=== PATIENT | female | born 1960 | race Caucasian/White ===

== ENCOUNTER 2023-06-01 12:43 | Inpatient (IN) | payer BC ==
[~2023-06-01] VITALS: Ht 165.1 cm; Wt 65.9 kg
[2023-06-01] MEDS ORDERED: DEXTROSE 10% 250 ML IV ONE (13:00)
[2023-06-01 13:38] LABS: Basophils # (auto) 0.1 10 ^3/uL (0-0.2); Basophils % (auto) 0.9 % (0.0-2.0); Eosinophils # (auto) 0.5 10 ^3/uL (0-0.8); Eosinophils % (auto) 5.9 % (0.0-7.0); Hematocrit 38.6 % (36.0-46.0); Lymphocytes # (auto) 1.6 10 ^3/uL (0.4-5.4); Lymphocytes % (auto) 18.1 % (10.0-50.0); Mean Corpuscular Hemoglobin 29.7 pg (28.0-32.0); Mean Corpuscular Hgb Conc. 33.8 g/dL (32.0-36.0); Monocytes # (auto) 0.6 10 ^3/uL (0-1.3); Monocytes % (auto) 7.2 % (0.0-12.0); Neutrophils # (auto) 6.1 10 ^3/uL (1.6-8.6); Neutrophils % (auto) 67.9 % (37.0-80.0); Red Blood Cells 4.39 10^6/uL (4.0-5.20); Red Cell Distribution Width 13.2 % (11.8-14.3)
[2023-06-01 13:56] LABS: Partial Thromboplastin Time 26.4 SEC (24.5-34.5); Prothrombin Time 10.5 sec (9.3-11.8)
[2023-06-01 14:02] LABS: Alanine Aminotransferase 14 U/L (7-40); Albumin 4.4 g/dL (3.2-4.8); Alkaline Phosphatase 114 U/L (46-116); Anion Gap 14 (5-15); Aspartate Aminotransferase 16 U/L (13-40); Blood Urea Nitrogen 22 mg/dL (9-23); Calcium 10.2 mg/dL (8.7-10.4); Carbon Dioxide 18 mmol/L (20-30); Chloride 107 mmol/L (98-107); Glucose 55 mg/dL (74-106); Potassium 4.4 mmol/L (3.5-5.1); Sodium 139 mmol/L (136-145)
[2023-06-01 14:03] LABS: Bilirubin, Total 0.3 mg/dL (0.2-1.0)
[2023-06-01] MEDS ORDERED: ONDANSETRON HCL 4 MG/2 ML VIAL IV ONE (14:30)
[2023-06-01] MEDS ORDERED: LABETALOL HCL 5 MG/ML 4ML SYRINGE IV ONE ×2 (14:42→14:45)
[2023-06-01] MEDS ORDERED: ATOR40TA52 PO (14:56)
[2023-06-01] MEDS ORDERED: FAMO40TA7 PO (14:56)
[2023-06-01] MEDS ORDERED: HYDR12.55 PO (14:56)
[2023-06-01] MEDS ORDERED: MELO-335 PO (14:56)
[2023-06-01] MEDS ORDERED: ZOLP10TA6 PO (14:56)
[2023-06-01] MEDS ORDERED: CARV3.1240 PO (14:56)
[2023-06-01] MEDS ORDERED: DULO1CAP6 PO (14:56)
[2023-06-01] MEDS ORDERED: METF-372 PO (14:56)
[2023-06-01 16:46] VITALS: PULSE 82; RESP 22; O2SAT 100
[2023-06-01] MEDS ORDERED: METOCLOPRAMIDE HCL 5MG/ml INJ 2ml VIAL IV PRN (17:00)
[2023-06-01] MEDS ORDERED: ONDANSETRON HCL 4 MG/2 ML VIAL IV PRN (17:00)
[2023-06-01] MEDS ORDERED: cloNIDine HCL 0.1 MG TAB PO ONE (17:00)
[2023-06-01] MEDS ORDERED: DOCUSATE SOD 100 MG CAP PO PRN (17:00)
[2023-06-01] MEDS ORDERED: ACETAMINOPHEN 325 MG TAB PO PRN (17:00)
[2023-06-01] MEDS ORDERED: DEXTROSE (50%) 50ML SYRG IV PRN ×2 (17:00→23:45)
[2023-06-01] MEDS ORDERED: HYDROcodone-ACET 5/325MG TAB PO PRN (17:00)
[2023-06-01] MEDS ORDERED: hydrALAZINE HCL 20 MG/ML VL IV PRN (17:00)
[2023-06-01] MEDS ORDERED: TAMSULOSIN HYDROCHLORIDE 0.4 MG CAP PO SCH (18:00)
[2023-06-01] MEDS: ACCU-CHEK COMFORT CURVE STRIP VI SCH ×4 (18:12→23:32)
[2023-06-01 18:59] LABS: Urine Bacteria FEW /hpf (None Seen); Urine Blood Negative /uL (Negative); Urine Clarity Clear (Clear); Urine Color Yellow (Yellow); Urine Protein, UAD 1+ (Negative); Urine Specific Gravity 1.015 (1.001-1.035); Urine Urobilinogen Normal (Negative); Urine WBC 1 /hpf (0 - 5); Urine pH 8.5 (5.0-8.0)
[2023-06-01 20:10] VITALS: PULSE 88; RESP 18; O2SAT 98
[2023-06-01] MEDS: CARVEDILOL 3.125 MG TAB PO SCH (22:27)
[2023-06-01] MEDS: SODIUM CHLOR 0.9% PF (SALINE LOCK) 10ML VIAL/SYR IV SCH (22:28)
[2023-06-02] MEDS: ACCU-CHEK COMFORT CURVE STRIP VI SCH ×4 (00:52→11:56)
[2023-06-02] MEDS: InsuLIN REG 1unit/0.01ml Soln (100units/ml) SC SCH ×4 (00:54→11:57)
[2023-06-02 06:01] LABS: Basophils # (auto) 0.1 10 ^3/uL (0-0.2); Basophils % (auto) 0.9 % (0.0-2.0); Eosinophils # (auto) 0.2 10 ^3/uL (0-0.8); Eosinophils % (auto) 2.8 % (0.0-7.0); Hematocrit 32.4 % (36.0-46.0); Hemoglobin 11.1 g/dL (12.2-16.2); Lymphocytes # (auto) 1.3 10 ^3/uL (0.4-5.4); Lymphocytes % (auto) 16.2 % (10.0-50.0); Mean Corpuscular Hemoglobin 29.7 pg (28.0-32.0); Mean Corpuscular Hgb Conc. 34.3 g/dL (32.0-36.0); Mean Corpuscular Volume 86.6 fL (80.0-100.0); Monocytes # (auto) 0.6 10 ^3/uL (0-1.3); Monocytes % (auto) 7.5 % (0.0-12.0); Neutrophils % (auto) 72.6 % (37.0-80.0); Red Blood Cells 3.74 10^6/uL (4.0-5.20); Red Cell Distribution Width 13.3 % (11.8-14.3); White Blood Cell 8.2 10^3/uL (4.4-10.8)
[2023-06-02] MEDS: SODIUM CHLOR 0.9% PF (SALINE LOCK) 10ML VIAL/SYR IV SCH ×2 (06:07→14:05)
[2023-06-02 06:13] LABS: Alanine Aminotransferase 10 U/L (7-40); Albumin 3.6 g/dL (3.2-4.8); Alkaline Phosphatase 88 U/L (46-116); Anion Gap 7 (5-15); Aspartate Aminotransferase 12 U/L (13-40); BUN/Creatinine Ratio 16.3 (10.0-20.0); Bilirubin, Total 0.2 mg/dL (0.2-1.0); Blood Urea Nitrogen 16 mg/dL (9-23); Calcium 9.4 mg/dL (8.7-10.4); Carbon Dioxide 27 mmol/L (20-30); Chloride 105 mmol/L (98-107); Glucose 63 mg/dL (74-106); Potassium 4.1 mmol/L (3.5-5.1); Sodium 139 mmol/L (136-145); Total Protein 5.9 g/dL (5.7-8.2)
[2023-06-02 08:47] VITALS: PULSE 86; RESP 16; O2SAT 96
[2023-06-02] MEDS ORDERED: TERI600S (09:42)
[2023-06-02] MEDS ORDERED: BUSP15TA60 PO (09:42)
[2023-06-02] MEDS ORDERED: DULA0.5I SC (09:42)
[2023-06-02] MEDS ORDERED: BUPR150T18 PO (09:42)
[2023-06-02] MEDS ORDERED: INSU1INJ14 SC (09:42)
[2023-06-02] MEDS ORDERED: INSU100I47 SC (09:42)
[2023-06-02] MEDS ORDERED: HYDR50TA69 PO (09:42)
[2023-06-02] MEDS ORDERED: ATORVASTATIN 20 MG TAB PO SCH ×2 (10:00→22:00)
[2023-06-02] MEDS ORDERED: MELOXICAM 15 MG TABLET PO SCH (10:00)
[2023-06-02] MEDS ORDERED: HCTZ 25 MG TAB PO SCH (10:00)
[2023-06-02] MEDS ORDERED: FAMOTIDINE 20 MG TAB PO SCH (10:00)
[2023-06-02] MEDS ORDERED: DULoxetine HCL 30 MG CAP PO SCH (10:00)
[2023-06-02] MEDS: CARVEDILOL 3.125 MG TAB PO SCH (10:36)
[2023-06-02 14:02] VITALS: BP 124/71; PULSE 87; RESP 18; TEMP 98.7; O2SAT 95
== END 2023-06-02 14:48 | disposition left against medical advice (07) | DRG 637 ==
LOC: ER 12:43 → OVERFLOW 16:53
PROVIDERS: ADMIT Nurse Practitioner Family; ATTEND Nurse Practitioner Family
DX: E11.649 Type 2 diabetes mellitus with hypoglycemia without coma (principal); G93.41 Metabolic encephalopathy; E78.5 Hyperlipidemia, unspecified; I10 Essential (primary) hypertension; M81.0 Age-related osteoporosis without current pathological fracture; Z53.29 Procedure and treatment not carried out because of patient's decision for other reasons; Z79.899 Other long term (current) drug therapy; R33.9 Retention of urine, unspecified; Z88.5 Allergy status to narcotic agent
CPT/HCPCS: 36415; 70450; 71045; 74176; 80053; 81001; 82962; 83036; 84484; 85025; 85610; 85730; G0378; J1815; J2405; J3490; J7060